=== PATIENT | female | born 1950 ===

== ENCOUNTER 2021-09-07 13:41 | Outpatient (REF) | payer MEDICARE, MEDICAID, SELFPAY | END 2021-09-07 13:42 | disposition home or self-care (01) | LOC: HO.LNP 13:41 | PROVIDERS: Visit Provider Internal Medicine | DX: Z13.89 Encounter for screening for other disorder (principal) ==

== ENCOUNTER 2021-09-22 12:55 | Outpatient (REF) | payer MEDICARE, MEDICAID, SELFPAY ==
[2021-09-22 13:40] LABS: Appearance Urine HAZY; Color Urine YELLOW; Glucose Urine UA NEG (NEG); Leukocyte Esterase Urine 3+ (NEG); Nitrite Urine POS (NEG); PH 6.5 (5.0-8.0); Urine Blood 1+ (NEG); Urine Ketones NEG (NEG); Urine Protein 2+ MG/DL (NEG-TRACE)
[2021-09-22 14:13] LABS: Bacteria Urine 3+ /LPF; WBC Urine 50-75 /HPF (0-4)
== END 2021-09-22 12:56 | disposition home or self-care (01) ==
LOC: HO.LNP 12:55
PROVIDERS: Visit Provider Internal Medicine
DX: Z13.89 Encounter for screening for other disorder (principal)
CPT/HCPCS: 81001; 87086; 87088; 87186